=== PATIENT | male | born 1985 | race Caucasian/White ===

== ENCOUNTER 2017-05-04 14:20 | Emergency (ER) | payer OTHER ==
[~2017-05-04] VITALS: Ht 182.9 cm; Wt 88.5 kg
[2017-05-04 16:58] VITALS: Ht 182.9 cm; Wt 88.5 kg
[2017-05-04 18:50] VITALS: BP 118/64
== END 2017-05-04 18:50 | disposition home or self-care (01) ==
LOC: ED 14:20
DX: B34.9 Viral infection, unspecified (principal); Z88.8 Allergy status to other drugs, medicaments and biological substances

== ENCOUNTER 2019-04-19 06:20 | Emergency (ER) | payer OTHER ==
[~2019-04-19] VITALS: Ht 182.9 cm; Wt 83.9 kg
[2019-04-19 06:36] VITALS: Ht 182.9 cm; Wt 83.9 kg
[2019-04-19 07:48] VITALS: BP 125/77
== END 2019-04-19 07:48 | disposition home or self-care (01) ==
LOC: ED 06:20
DX: J11.1 Influenza due to unidentified influenza virus with other respiratory manifestations (principal); R51 Headache; Z88.8 Allergy status to other drugs, medicaments and biological substances
CPT/HCPCS: J7512